=== PATIENT | female | born 1975 | race Caucasian/White ===

== ENCOUNTER 2020-07-01 16:13 | Emergency (ER) | payer OTHER ==
[~2020-07-01] VITALS: Ht 175.3 cm; Wt 125.0 kg
[2020-07-01 16:18] VITALS: Ht 175.3 cm; Wt 125.0 kg
[2020-07-01] MEDS ORDERED: TRAZODONE HCL300 MG PO (16:19)
[2020-07-01] MEDS ORDERED: AMBIEN5 MG PO (16:20)
[2020-07-01] MEDS ORDERED: NAPROSYN500 MG PO (16:20)
[2020-07-01] MEDS ORDERED: ABILIFY10 MG PO (16:20)
[2020-07-01] MEDS ORDERED: PROZAC20 MG PO (16:20)
[2020-07-01] MEDS ORDERED: LISINOPRIL30 MG PO (16:20)
[2020-07-01] MEDS ORDERED: NEURONTIN600 MG PO (16:21)
[2020-07-01] MEDS ORDERED: VISTARIL25 MG PO (16:21)
[2020-07-01] MEDS ORDERED: LASIX20 MG PO (16:22)
[2020-07-01] MEDS ORDERED: KLOR-CON 1010 MEQ PO (16:22)
[2020-07-01 16:54] LABS: BASOPHILS 0.2 % (0-2); EOSINOPHILS 1.6 % (0-7); HEMATOCRIT 49.9 % (36.0-48.0); HEMOGLOBIN 15.9 g/dL (12-16); IMMATURE GRANULOCYTES 0.3 % (0-5); LYMPHOCYTE ABS# 2.87 10x3/uL (1.18-3.74); LYMPHOCYTES 24.8 % (15-50); MCH 28.8 pg (26.0-34.0); MCHC 31.9 g/dL (31.0-37.0); MCV 90.4 fL (80.0-100.0); MEAN PLATELET VOLUME 10.6 fL (7.4-10.4); MONOCYTES 7.4 % (2-11); NEUTROPHILS 65.7 % (40-80); PLATELET COUNT 185 10x3/uL (130-400); RBC 5.52 10x6/uL (4.00-5.40); RDW 13.4 % (11.5-14.5); WBC 11.6 10x3/uL (4.8-10.8)
[2020-07-01 17:03] LABS: APTT 25.6 SECONDS (22.8-39.4); CALC OSMOLALITY 291 mosm/kg (275-300); CALCIUM 8.9 mg/dL (8.5-10.1); CARBON DIOXIDE 35.2 mmol/L (21.0-32.0); CHLORIDE - SERUM 105 mmol/L (98-107); CREATININE - SERUM 1.1 mg/dL (0.6-1.3); GLUCOSE 85 mg/dL (74-106); INR 1.19 (0.85-1.17); POTASSIUM - SERUM 3.6 mmol/L (3.5-5.1); SODIUM 146 mmol/L (136-145); UREA NITROGEN 19 mg/dL (7-18); eGFR NON AFRICAN AMERICAN 57 mL/min (90-120)
[2020-07-01 17:19] LABS: ALBUMIN 3.3 g/dL (3.4-5.0); ALKALINE PHOSPHATASE 84 U/L (30-120); ALT (SGPT) 25 U/L (10-68); BILIRUBIN - TOTAL 0.41 mg/dL (0.2-1.3); CKMB 6.6 U/L (0.0-3.6); PROTEIN - SERUM 7.2 g/dL (6.4-8.2); THYROID STIMULATING HORMONE 1.39 uIU/mL (0.36-3.74)
[2020-07-01 17:25] LABS: CREATINE KINASE 901 UL (21-215); TROPONIN-I < 0.017 ng/mL (0.000-0.060)
[2020-07-01 17:30] LABS: UDS - AMPHET POSITIVE QUAL (NEGATIVE); UDS - BARB NEGATIVE QUAL (NEGATIVE); UDS - BENZO POSITIVE QUAL (NEGATIVE); UDS - COCAINE NEGATIVE QUAL (NEGATIVE); UDS - OPIATE NEGATIVE QUAL (NEGATIVE); UDS - PCP NEGATIVE QUAL (NEGATIVE); UDS - THC POSITIVE QUAL (NEGATIVE)
[2020-07-01 17:39] LABS: BILIRUBIN NEGATIVE (NEGATIVE); KETONE NEGATIVE (NEGATIVE); NITRITE NEGATIVE (NEGATIVE); UROBILINOGEN NORMAL mg/dL (< 2)
[2020-07-01 19:35] VITALS: BP 135/78
== END 2020-07-01 19:35 | disposition home or self-care (01) ==
LOC: D.ER 16:13
PROVIDERS: Family Medicine
DX: F19.10 Other psychoactive substance abuse, uncomplicated (principal); F15.10 Other stimulant abuse, uncomplicated; F12.10 Cannabis abuse, uncomplicated; S80.00XA Contusion of unspecified knee, initial encounter; W19.XXXA Unspecified fall, initial encounter; Y93.9 Activity, unspecified; Y92.9 Unspecified place or not applicable; I11.0 Hypertensive heart disease with heart failure; I50.9 Heart failure, unspecified; R42 Dizziness and giddiness; R47.81 Slurred speech